=== PATIENT | male | born 1990 | race African-American/Black ===

== ENCOUNTER 2020-07-01 12:24 | Emergency (ER) | payer MEDICAID, OTHER ==
[~2020-07-01] VITALS: Ht 185.4 cm; Wt 74.8 kg
[2020-07-01 12:38] VITALS: BP 115/73
== END 2020-07-01 14:39 | disposition home or self-care (01) ==
LOC: EDBD 12:24 → ER 12:24
DX: S86.912A Strain of unspecified muscle(s) and tendon(s) at lower leg level, left leg, initial encounter (principal); S80.211A Abrasion, right knee, initial encounter; V29.9XXA Motorcycle rider (driver) (passenger) injured in unspecified traffic accident, initial encounter; Y93.89 Activity, other specified; Y92.89 Other specified places as the place of occurrence of the external cause; Y99.8 Other external cause status
CPT/HCPCS: 93971